=== PATIENT | female | born 1980 | race Caucasian/White ===

== ENCOUNTER 2025-08-28 10:43 | Emergency (ER) | payer OTHER, SELFPAY ==
[2025-08-28 10:48] VITALS: BP 151/80
[2025-08-28 11:21] LABS: Hematocrit 40.7 % (37.0-47.0); Hemoglobin 14.0 g/dL (12.0-16.0); Mean Corp Hgb Conc. 34.4 g/dL (33.0-37.0); Mean Corpuscular Volume 88.5 fL (81.0-99.0); Nucleated Red Blood Cells % 0 %; Platelet Count 226 10^3/uL (130-400); Red Cell Dist. Width 13.5 % (11.5-14.5)
[2025-08-28 11:30] LABS: INR 0.95; PT 12.8 Sec (11.4-14.6)
[2025-08-28 11:31] LABS: HCG, Serum Qualitative Screen Negative
[2025-08-28 11:36] LABS: ALT (SGPT) 19 U/L (0-35); AST (SGOT) 18 U/L (14-36); Albumin 3.7 g/dl (3.5-5.0); Alkaline Phosphatase 87 U/L (38-126); Blood Urea Nitrogen 16 mg/dl (7-17); Calcium 8.9 mg/dl (8.4-10.2); Carbon Dioxide 22 mmol/L (22-30); Chloride 109 mmol/L (98-107); Glucose 94 mg/dl (70-99); Potassium 3.9 mmol/L (3.5-5.1); Sodium 136 mmol/L (135-145); Total Protein 6.0 g/dl (6.3-8.2); eGFR > 60.00
[2025-08-28 11:44] LABS: Troponin I < 0.012 ng/ml
[2025-08-28 12:01] VITALS: BP 114/72
--- NOTE | 2025-08-28 12:27 | ED.GENMED ---
History of Present Illness
General
Chief Complaint: Chest Problem
Source: patient
Exam Limitations: none
Time Seen by Provider: 08/28/25 12:11
Nursing documentation reviewed up to this point in time: agreed with
History of Present Illness
History of Present Illness:
44-year-old female is here for bilateral leg swelling that she states started 8 days ago. She denies pain in the legs. She states she has also developed intermittent chest pain and feeling short of breath the same time she noted the leg swelling.
She states she feels like she gets short of breath even with talking. She denies fever or chills. Denies abdominal pain, N/V/D/C.
She admits to being homeless, she is living in her boyfriend's car, she has been living there for the past year and a half. She states she is on a waiting list for [facility] housing. 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
freezing or dangerously cold. She has been in [facility] shelters as needed. She denies needing help for a place to stay.
States that she smokes 20 cigars every 3 days
Past History
Past History
ED Past Medical History: None
ED Past Surgical History: Gynecological
Social History
Tobacco: Smoker (20 cigars every 3 days)
Alcohol: None
Personal: Single
Living: homeless (Has lived in her car for the past year and a half, she does go to [facility] shelters when needed)
Employment: Not employed
Review of Systems
Review of Systems
Allergies reviewed?: Yes
All Other Systems: ROS reviewed and negative except as documented in HPI and ROS
Phy Exam
Physical Exam
Physical Exam:
GENERAL: No acute distress. A&Ox3.
CONSTITUTIONAL: Afebrile.
EYES: clear, conjunctivae normal
ENMT: moist mucus membranes, Pharynx nl
RESPIRATORY: Regular respirations, nonlabored, lungs clear.
CARDIOVASCULAR: Regular rate and rhythm, no murmurs, no rubs. Feet are warm, pedal pulses normal, no swelling noted, brisk capillary refill.
GI: Soft, nontender, normal BS
MUSCULOSKELETAL: Moves with ease. Well perfused. No edema noted
SKIN: Warm, dry, pink
PSYCH: Normal mood and affect. Well kept, interactive and appropriate
NEUROLOGIC: Awake, alert and oriented. No focal neurological deficits
Course
Orders/Labs/Results
Orders:
Orders
08/28/25 10:52
Electrocardiogram (*1) Urgent
Reason for Study: Chest Pain
EKG- Treatment ONCE
08/28/25 10:53
Test Result ONCE
08/28/25 11:07
Comprehensive Metabolic Panel Urgent
HCG, Serum Qualitative Screen Urgent
Comment: Notify provider if positive test present
Pro-BNP [NT-proBNP] Urgent
Prothrombin Time Urgent
Troponin I Urgent
08/28/25 11:08
Complete Blood Count/With Diff Urgent
08/28/25 12:26
US Periph Venous LOWER Ext Cristi Urgent
Comment:
Reason For Exam: swelling
08/28/25 12:39
D-Dimer Urgent
08/28/25 13:43
CR Chest - 2 Views Urgent
Comment:
Reason For Exam: cough, SOB
Abnormal Lab Results
08/28/25 08/28/25
11:07 11:08
WBC 12.1 H 10^3/uL
(4.8-10.8)
Abs Immat Gran (auto) 0.1 H 10^3/uL
(0-0.05)
Absolute Neuts (auto) 8.2 H 10^3/uL
(1.4-6.5)
Absolute Monos (auto) 0.8 H 10^3/uL
(0.1-0.6)
Chloride 109 H mmol/L
(98-107)
Total Protein 6.0 L g/dl
(6.3-8.2)
08/28/25 11:08
08/28/25 11:07
Vital Signs
Initial and Last Documented VS:
Initial Vital Signs
Temp Pulse Resp BP Pulse Ox
98.5 F 91 18 151/80 99
08/28/25 10:48 08/28/25 10:48 08/28/25 10:48 08/28/25 10:48 08/28/25 10:48
Last Documented Vital Signs
Temp Pulse Resp BP Pulse Ox
98.5 F 82 15 124/78 98
08/28/25 10:48 08/28/25 14:32 08/28/25 14:32 08/28/25 14:00 08/28/25 14:32
MDM/Problems Addressed
Differential Diagnosis Includes:
Dependent edema, DVT, renal insufficiency
MDM/Problems Addressed:
44-year-old female is here for bilateral leg swelling that she states started 8 days ago. She denies pain in the legs. She states she has also developed intermittent chest pain and feeling short of breath the same time she noted the leg swelling.
She states she feels like she gets short of breath even with talking. She denies fever or chills. Denies abdominal pain, N/V/D/C.
She admits to being homeless, she is living in her boyfriend's car, she has been living there for the past year and a half. She states she is on a waiting list for [facility] housing. 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
freezing or dangerously cold. She has been in [facility] shelters as needed. She denies needing help for a place to stay.
Afebrile, NAD, pleasant
NSR with sinus arrhythmia heart rate 78
CBC normal save for mild elevation in white blood cells at 12.1.
PT/INR normal
CMP normal
Troponin normal
BNP normal
hCG negative
Physical exam unremarkable, no significant swelling of the legs noted, good distal pulses feet warm and dry, brisk capillary refill
1:30 PM:
D-dimer normal
Ultrasound bilateral lower extremities show no DVT
Subjective bilateral leg swelling, no notable swelling objectively.
Chest x-ray: NAD
Patient is stable for discharge. Asks 'what should do about my breathing,' suggested she stop smoking, Rx for albuterol inhaler sent to her pharmacy. Lungs CTA
*Pulse Oximetry
SaO2: 98
Oxygen Mode of Delivery: Room air
Patient hypoxic: no
*EKG
EKG Intrepretation Date: 08/28/25
Interpretation: normal
Heart Rate: 78
Rate: normal
Rhythm: sinus and sinus arrhythmia
[place]: normal axis
Interval: normal interval
QRS Pattern: normal QRS
Ischemia: no ischemia
*Critical Care Note
Total Time (30-74mins, 75-104mins- exclusive of procedures): Not Applicable
ED Attending Note
-
Portions of this chart may have been created with voice recognition software.� Occasional wrong word or��sound alike� substitutions may have occurred due to the inherent limitations of voice recognition software.
Discharge Plan
Departure
Patient Disposition: Home (Routine Discharge)
Date of Disposition: 08/28/25
Time of Disposition: 14:48
Patient with high blood pressure during this ER visit?: No
Condition: Good
Discharge Problem:
Swelling of both lower extremities, Dependent edema
Instructions: Swelling, Quitting smoking for adults, Shortness of breath
Prescriptions:
New
albuterol sulfate [Ventolin HFA] 90 mcg/actuation HFA aerosol inhaler
2 puff inhalation Q6H PRN (Reason: shortness of breath or wheezing) Qty: 6.7 0RF
Referrals:
NONE,* [Family Provider, Internal Medicine]
Activity Restrictions/Additional Instructions:
As we discussed, nothing worrisome in your workup here today. Specifically no clots in your legs. Your blood work shows nothing worrisome.
Your legs may be a little swollen from not moving around enough.
I sent a prescription to your pharmacy for Albuterol inhaler to use as needed for shortness of breath.
Consider stopping smoking.
Interventions
Interventions:
*Risk Screen - Suicide Last Done: 08/28/25 10:48
*ED Influenza Vaccine History Last Done: 08/28/25 10:48
[facility] Fall Risk Assessment Tool Last Done: 08/28/25 12:04
*Nursing Disposition Last Done: 08/28/25 14:59
ED- Cardiac Assessment Last Done: 08/28/25 12:04
ED- Pulmonary Assessment Last Done: 08/28/25 12:04
Discharge Date and Time
Discharge Date/Time: 08/28/25 14:59
Print Language: [email or web address]
[2025-08-28 13:03] LABS: D-Dimer 0.34 ug/mlFEU (0.00-0.50)
[2025-08-28 13:47] VITALS: BP 118/73
[2025-08-28 14:00] VITALS: BP 124/78
== END 2025-08-28 14:59 | disposition home or self-care (01) ==
LOC: EMR 10:43
PROVIDERS: Registered Nurse; EMERGENCY PHYSICIAN Emergency Medicine
DX: R60.0 Localized edema (principal); F17.290 Nicotine dependence, other tobacco product, uncomplicated; Z59.00 Homelessness unspecified
CPT/HCPCS: 99284; 71046; 80053; 83880; 84484; 84703; 85025; 85379; 85610; 93005; 93970